=== PATIENT | male | born 1975 ===

== ENCOUNTER 2018-06-12 22:36 | Emergency (ER) | payer SELFPAY ==
[2018-06-12 22:44] VITALS: TEMP 98.2
[2018-06-12 22:47] VITALS: RESP 16
--- NOTE | 2018-06-12 23:09 | ED PDOC ---
HPI: General Adult Time Seen by Provider: 06/12/18 23:05 Chief Complaint (Nursing): Chest Pain Chief Complaint (Provider): cp History Per: Patient (43 y/o male here with chest pain intermittent sharp left sided radiating to back x 3 days. Began while watching TV at home. Denies any pleuritic component. denies any smoking. denies any h/o DM/HTN/hyperlipidemia/drug abuse. Has family h/o NM maternal grandfather 66.) Past Medical History Reviewed: Historical Data, Nursing Documentation, Vital Signs Vital Signs: Last Vital Signs Temp 98.2 F 06/12/18 22:42 Pulse 65 06/12/18 22:42 Resp 16 06/12/18 22:42 BP 111/73 06/12/18 22:42 Pulse Ox 97 06/12/18 22:42 - Family History Family History: States: No Known Family Hx - Allergies Allergies/Adverse Reactions: Allergies Allergy/AdvReac Type Severity Reaction Status Date / Time No Known Allergies Allergy Verified 06/12/18 22:44 Review of Systems ROS Statement: Except As Marked, All Systems Reviewed And Found Negative Physical Exam - Reviewed Nursing Documentation Reviewed: Yes Vital Signs Reviewed: Yes - Physical Exam Appears: Positive for: Well, Non-toxic, No Acute Distress Head Exam: Positive for: ATRAUMATIC, NORMAL INSPECTION, NORMOCEPHALIC Skin: Positive for: Normal Color, Warm, DRY Eye Exam: Positive for: EOMI, Normal appearance, PERRL ENT: Positive for: Normal ENT Inspection Neck: Positive for: Normal, Painless ROM Cardiovascular/Chest: Positive for: Regular Rate, Rhythm Respiratory: Positive for: CNT, Normal Breath Sounds Gastrointestinal/Abdominal: Positive for: Normal Exam, Soft Back: Positive for: Normal Inspection Extremity: Positive for: Normal ROM Neurologic/Psych: Positive for: Alert, Oriented - Laboratory Results Result Diagrams: 06/12/18 23:15 06/12/18 23:15 - ECG ECG Rhythm: Positive for: Sinus Bradycardia (59 bpm; PVC noted; no acute changes) O2 Sat by Pulse Oximetry: 97 - Progress ED Course And Treament: cxr: nad Patient given ASA 324 mg x dose 2nd trop wnl patient comfortable in ED. Disposition - Clinical Impression Clinical Impression: Chest pain - Patient ED Disposition Is Patient to be Admitted: No - Disposition Referrals: [facility] [Outside] Disposition: Routine/Home Disposition Time: 02:31 Condition: STABLE Instructions: Chest Pain Forms: [facility] ED School/Work Excuse
[2018-06-12 23:22] LABS: BASO # 0.1 K/uL (0.0-0.2); BASO % 1.2 % (0.0-2.0); EOS % 0.9 % (0.0-4.0); HEMOGLOBIN 13.8 g/dL (12.0-18.0); LYMPH # 0.9 K/uL (1.0-4.3); LYMPH % 19.6 % (20.0-40.0); MEAN CORPUSCULAR HEMOGLOBIN 29.2 pg (27.0-31.0); MEAN CORPUSCULAR HGB CONC 33.1 g/dL (33.0-37.0); MEAN PLATELET VOLUME 10.3 fl (7.2-11.7); MONO # 0.4 K/uL (0.0-0.8); MONO % 7.7 % (0.0-10.0); NEUT # 3.4 K/uL (1.8-7.0); NEUT % 70.6 % (50.0-75.0); RBC 4.74 Mil/uL (4.40-5.90); RED CELL DISTRIBUTION WIDTH 13.7 % (11.5-14.5); WHITE BLOOD COUNT 4.7 K/uL (4.8-10.8)
[2018-06-12 23:57] LABS: ALB/GLOB RATIO 1.4 (1.0-2.1); ALBUMIN 4.1 g/dL (3.5-5.0); ALT/SGPT 36 U/L (21-72); AST/SGOT 30 U/L (17-59); BLOOD UREA NITROGEN 17 mg/dl (9-20); CALCIUM 9.1 mg/dL (8.4-10.2); GFR NON-AFRICAN AMERICAN > 60
[2018-06-13 03:11] VITALS: BP 125/67; PULSE 59
--- NOTE | 2018-06-13 10:40 | RAD ---
Date of service: 06/12/2018 HISTORY: cp COMPARISON: No prior. TECHNIQUE: Chest PA and lateral FINDINGS: LUNGS: No active pulmonary disease. PLEURA: No significant pleural effusion identified. No pneumothorax apparent. CARDIOVASCULAR: No aortic atherosclerotic calcification present. Normal cardiac size. No pulmonary vascular congestion. OSSEOUS STRUCTURES: No significant abnormalities. VISUALIZED UPPER ABDOMEN: Normal. OTHER FINDINGS: None. IMPRESSION: No active disease.
--- NOTE | 2018-06-13 20:11 | CARD ---
APPROVED REPORT Date of service: 06/12/2018 EKG Measurement Heart [id number] [id number] <Conclusion> Sinus rhythm with occasional premature ventricular complexes Early repolarization Otherwise normal ECG
[2018-06-15 03:40] VITALS: O2SAT 97
== END 2018-06-13 02:40 | disposition home or self-care (01) ==
LOC: H.ER 22:36
DX: R07.89 Other chest pain (principal); R00.1 Bradycardia, unspecified